=== PATIENT | male | born 1960 | race Caucasian/White ===

== ENCOUNTER 2016-11-27 05:34 | Inpatient (IN) | payer MEDICARE, OTHER ==
[2016-11-27] VITALS (8 sets, daily range): BP systolic 127–137; BP diastolic 67–87
[~2016-11-27] VITALS: Ht 175.3 cm; Wt 93.4 kg
--- NOTE | 2016-11-27 13:00 | NUR ---
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 ALERT AND ORIENTED TIMES 4. NO SIGNS OF ACUTE DISTRESS. COMPLAIN OF LEFT KNEE PAIN 10/26. NORCO 5/325 2 TABS PO GIVEN. TOLERATING WELL. ALL NEEDS ATTENDED TO. CALL LIGHT WITHIN REACH. CONTINUE TO MONITOR FOR FURTHER CHANGES.
[2016-11-27] MEDS ORDERED: GABA600T2 PO (16:57)
[2016-11-27] MEDS ORDERED: IBUP-1482 PO (16:57)
[2016-11-27] MEDS ORDERED: ATOR40TA PO (16:57)
[2016-11-27] MEDS ORDERED: BUPR200T PO (16:57)
[2016-11-27] MEDS ORDERED: VENL150T PO (16:57)
[2016-11-27] MEDS ORDERED: MIRT15TA7 PO (16:57)
[2016-11-27] MEDS ORDERED: CLON0.5T4 PO (16:57)
--- NOTE | 2016-11-27 17:49 | NUR ---
MS/animal treatment investigator reconciliation Home medications entered into computer. Dr Torre aware and stated that he would reconcile all medications on computer.
--- NOTE | 2016-11-27 17:57 | NUR ---
MS/RN DR BROWN PAGED DR BROWN PAIN MGMT UNABLE TO LEAVE MESSAGE. WILL RE ATTEMPT LATER.
--- NOTE | 2016-11-27 18:31 | NUR ---
MS/RN Pain medication orders Received call back from Dr Parikh, orders for pain medication given -norco 2 tablets every 3 hours for prn mild pain -oxycodone IR 10mg every 3 hours prn for moderate pain -dilaudid 1mg SQ every 3 hours prn for severe pain MD also requesting that gabapentin and clonazepam be continued, although dose of clonazepam changed to 0.25mg every eight hours prn for anxiety. Per Dr Parikh, no further anticoagulation to be ordered for patient, stated that ASA 325mg BID was adequate.
--- NOTE | 2016-11-27 18:38 | NUR ---
MS/RN CLOSING NOTE PATIENT IN BED IN STABLE CONDITION. ALERT AND ORIENTED TIMES 4. NO SINGS OF ACUTE DISTRESS. COMPLAIN OF PAIN TO LEFT KNEE, S/P TOTAL KNEE REPLACEMENT. NORCO 5/325 2 TABS GIVEN PO. TOLERATING WELL. ALL NEEDS ATTENDED TO. CALL LIGHT WITHIN REACH. WILL ENDORSE TO NEXT SHIFT FOR CONTINUITY OF CARE.
--- NOTE | 2016-11-27 19:30 | NUR ---
RN NOTE; RECEIVED PT IN BED W/ VISITOR AT THE BED SIDE. BREATHING EVENLY. NO SOB. NAD. SKIN WARM AND DRY. W/ MILD L KNEE PAIN . DRESSING IN PLACE CDI. F/C IN PLACE; DRAINING CLEAR YELLOW URINE . NEEDS ATTENDED . BED LOW LOCKED. CALL LIGHT WITHIN REACH. WILL CONT TO MONITOR .
--- NOTE | 2016-11-27 21:32 | NUR ---
dilaudid 1mg/1ml no t available . got an order from dr. kern to replace the order w/ 2mg/ml and give 0.5ml sq .
--- NOTE | 2016-11-27 21:34 | NUR ---
DILAUDID 1MG SQ GIVEN ORDERED FOR SEVERE L KNEE PAIN. WILL CONT TO MONITOR,
--- NOTE | 2016-11-27 22:57 | NUR ---
PT IS REQUESTING TO HOLD ON TO HIS REMERON FOR NOW. HE WILL LET ME KNOW WHEN HE WANTS TO TAKE IT BEFORE SLEEP. PT IS CURRENTLY USING THE CPM MACHINE W. NO COMPLICATIONS. PAIN TOLERATED WELL. ALSO PT IS REQUESTING TO HOLD ON TO HIS IVF HYDRATION FOR NOW AND REFUSED TO BE CONNECTED WHILE SLEEPING. WILL CONT TO MONITOR.
--- NOTE | 2016-11-28 02:09 | NUR ---
noted w/ an order from DR. Sanderson for RBC fro active bleeding?! last H/H: 16.2 &49. pt w/ no s/s of active bleeding . no SOB. paged Dr. sanderson and explained pt's condition and new order. w/ an order to D/c the order. Pt will have blood draw in AM for H/H. will cont to monitor.
--- NOTE | 2016-11-28 03:54 | NUR ---
oxy ir 10mg given as ordered for c/o l knee pain, will cont to monitor
--- NOTE | 2016-11-28 06:26 | NUR ---
RN NOTE; PT IN BED AWAKE AND ALERT. BREATHING EVENLY. NO SOB. NAD .SKIN WARM AND DRY. S/P L KNEE ARTHROPLASTY W/ NO COMPLICATIONS DURING THE NIGHT. L KNEE DRESSING CDI. ON ON AND OFF IVF HYDRATION. PAIN UNDER CONTROL BY USE OF PAIN MEDICATIONS. F/C IN PLACE DRAINING CLEAR YELLOW URINE. NEEDS ATTENDED. ASSISTED W/ ADLS . CALL LIGHT WITHIN REACH .WILL CONT TO MONITOR AND WILL ENDORSE TO AM SHIFT FOR NAVEED.
[2016-11-28 07:03] LABS: HEMOGLOBIN 13.7 g/dL (13.5-17.5)
--- NOTE | 2016-11-28 07:47 | NUR ---
MS/RN OPENING NOTE PATIENT RECEIVED IN BED IN STABLE CONDITION. ALERT AND ORIENTED TIMES 4. NO SINGS OF ACUTE DISTRESS. COMPLAIN OF LEFT KNEE S/P TOTAL KNEE REPLACEMENT PAIN RATED 8/10. DILAUDID 2MG/0.5ML SQ GIVEN. TOLERATING WELL. ALL NEEDS ATTENDED TO. CALL LIGHT WITHIN REACH. WILL CONTINUE TO MONITOR TO ENSURE SAFETY.
[2016-11-28 08:00] VITALS: BP 121/70
--- NOTE | 2016-11-28 09:30 | NUR ---
MS/RN D/C F/C S/P F/C REMOVAL TOLERATED WELL. NO S/S OF BLEEDING. NO S/S OF INFECTION NOTED. NO COMPLAIN OF PAIN OR DISCOMFORT. ALL NEEDS ATTENDED AT THIS TIME. CALL LIGHT WITHIN REACH. WILL CONTINUE TO MONITOR TO ENSURE SAFETY.
--- NOTE | 2016-11-28 10:00 | NUR ---
MS/RN S/B Dr Yo Seen by Dr Yo - labs ordered for tomorrow. Upon discharge, patient requesting to go home with home health rather than to an acute rehab unit.
--- NOTE | 2016-11-28 11:30 | NUR ---
MS/RN S/B Ortho Seen by Gely BARKER - first dressing change tomorrow by . Patient complaining of increased pain and swelling to left calf area. Venous duplex ordered.
--- NOTE | 2016-11-28 14:58 | NUR ---
MS/RN Duplex imaging Left calf venous duplex in progress at bedside.
--- NOTE | 2016-11-28 15:05 | NUR ---
MS/RN Physical therapy Seen by PT - patient ambulating 300ft using FWW, able to climb 12 stairs X2.
--- NOTE | 2016-11-28 15:30 | NUR ---
MS/RN Duplex result Venous duplex negative for DVT.
[2016-11-28 16:00] VITALS: BP 118/71
--- NOTE | 2016-11-28 16:37 | NUR ---
MS/RN IV PULLED OUT LEFT HAND IV 22 GZ PULLED OUT. NO S/S OF BLEEDING, NO S/S OF SWELLING. IV CATHETER INTACT. DR [place] AWARE.
--- NOTE | 2016-11-28 17:39 | NUR ---
MS/RN CLOSING NOTE PATIENT IN BED, AWAKE IN STABLE CONDITION. ALERT AND ORIENTED TIMES 4. NO SIGNS OF ACUTE DISTRESS. NO COMPLAIN OF PAIN OR DISCOMFORT AT THIS TIME. USING CPM MACHINE SECONDARY TO S/P LEFT TKA AT THIS TIME. TOLERATING WELL. ALL NEEDS ATTENDED TO. CALL LIGHT WITHIN REACH. WILL CONTINUE TO MONITOR TO ENSURE SAFETY.
--- NOTE | 2016-11-28 18:26 | NUR ---
MS/RN Pain Complaining of 7/10 pain to left knee after ambulating in hallways. Dilaudid 1mg administered as ordered, will monitor effectiveness.
--- NOTE | 2016-11-28 19:30 | NUR ---
rn note; RECEIVED PT IN BED AWAKE AND ALERT. BREATHING EVENLY. NO SOB. NAD. DRESSING ON L KNEE CDI . W/ C/O MILD TO MODERATE PAIN. REQUESTING OXY IR .EXPLAINED TO THE PT THAT IT WILL BE GIVEN IT'S DUE PT UNDERSTANDS AND AGREED. NEEDS ATTENDED . CALL LIGHT WITHIN REACH,. WILL CONT TO MONITOR.
[2016-11-28 20:00] VITALS: BP 138/83
--- NOTE | 2016-11-28 20:42 | NUR ---
OXY IR GIVEN ORDERED PER PT'S REQUEST FOR C/O L KNEE PAIN. WILL CONT TO MONITOR
--- NOTE | 2016-11-29 00:26 | NUR ---
dilaudid 1mg sq given for c/o severe l knee pain. assisted pt w/ repositioning having him comfortable in bed . will cont to monitor.
--- NOTE | 2016-11-29 06:15 | NUR ---
dilaudid 1mg sq given for c/o severe l knee pain. will cont to monitor.
--- NOTE | 2016-11-29 06:43 | NUR ---
RN NOTE; PT IN BED AWAKE AND ALERT. BREATHING EVENLY. NO ACUTE EVENT DURING THE NIGHT. PAIN TOLERATED WELL BY USE OF PAIN MEDICATIONS ORDERED .NEEDS ATTENDED .ASSISTED W. ADLS. CALL LIGHT WITHIN REACH .WILL CONT TO MONITOR AND WILL ENDORSE TO AM SHIFT FOR NAVEED.
[2016-11-29 07:44] LABS: BASOPHILS % (AUTO) 0.1 % (0.0-2.0); EOSINOPHILS # (AUTO) 0.4 /CMM (0.0-0.7); HEMATOCRIT 39 % (39-51); HEMOGLOBIN 13.2 g/dL (13.5-17.5); LYMPHOCYTES # (AUTO) 1.5 /CMM (0.8-4.8); LYMPHOCYTES % (AUTO) 10.8 % (20.0-44.0); MEAN CORPUSCULAR HEMOGLOBIN 32 PG (26.0-33.0); MEAN CORPUSCULAR HGB CONC 34 g/dl (31.0-36.0); MEAN CORPUSCULAR VOLUME 94 fL (80-96); MONOCYTES # (AUTO) 2.1 /CMM (0.1-1.30); MONOCYTES % (AUTO) 15.1 % (2.0-12.0); NEUTROPHILS # (AUTO) 9.9 /CMM (1.8-8.9); PLATELET COUNT (AUTO) 182 /CMM (150-450); RDW COEFFICIENT OF VARIATION 13.8 (11.5-15.0)
--- NOTE | 2016-11-29 07:56 | NUR ---
MS RN NOTES PATIENT RESTING IN BED. NO SOB, NO C/O PAIN, TALKATIVE, NO ACUTE DISTRESS NOTED. BED IN LOW LOCKED POSITION. CALL LIGHT WITHIN REACH. WILL CONTINUE TO OBSERVE CLOSELY FOR ANY CHANGES.
[2016-11-29 08:00] VITALS: BP 129/67
[2016-11-29 08:23] LABS: CALCIUM, SERUM 8.3 mg/dL (8.5-10.1); CREATININE 1.2 mg/dL (0.6-1.3); POTASSIUM 4.3 mmol/L (3.5-5.1)
[2016-11-29 10:24] LABS: EOSINOPHILS % (MANUAL) 3 % (0-4); LYMPHOCYTES % (MANUAL) 9 % (16-48); MONOCYTES % (MANUAL) 15 % (0-11.0); NEUTROPHILS % (MANUAL) 73 (42-76)
[2016-11-29 16:00] VITALS: BP 135/84
--- NOTE | 2016-11-29 18:41 | NUR ---
MS RN NOTES PATIENT RESTING IN BED, AMBULATES WITH THE WALKER. HAS LEFT KNEE BRACE ON. HAD C/O PAIN TO LEFT KNEE. PAIN WAS MANAGED BY ADMINISTERING PRN PAIN MEDICINES ORDERED. HOUSING COORDINATOR DISCUSSED WITH THE PT, PLANNED TO BE DISCHARGED HOME WITH HOME HEALTH TOMORROW. PATIENT VERBALIZED UNDERSTANDING OF ALL THE INSTRUCTIONS. NO IV LINE. MD AWARE. USES CPM MACHINE AT 60 DE[address]REE. BED IN LOW LOCKED POSITION. CALL LIGHT WITHIN REACH. WILL ENDORSE TO OYSTER CULLER.
--- NOTE | 2016-11-29 19:30 | NUR ---
rn note; RECEIVED PT IN BED AWAKE AND ALERT. BREATHING EVENLY. NO SOB. NAD. DRESSING ON L KNEE CDI . REQUESTING OXY IR PRIOR USING THE CPM MACHINE. TO BE GIVEN . NEEDS ATTENDED . CALL LIGHT WITHIN REACH,. WILL CONT TO MONITOR.
[2016-11-29 20:00] VITALS: BP 143/85
--- NOTE | 2016-11-29 20:12 | NUR ---
OXY IR GIVEN PER PT'S REQUEST FOR C/O PAIN ON L KNEE. WILL CONT TO MONITOR,
--- NOTE | 2016-11-30 06:31 | NUR ---
RN NOTE; PT IN BED SLEEPING. BREATHING EVENLY. NO ACUTE EVENT DURING THE NIGHT. PAIN UNDER GOOD CONTROL.NEEDS ATTENDED .ASSISTED W. ADLS. CALL LIGHT WITHIN REACH .WILL CONT TO MONITOR AND WILL ENDORSE TO AM SHIFT FOR NAVEED.
--- NOTE | 2016-11-30 07:20 | NUR ---
RN OPENING NOTES RECEIVED PATIENT IN BED AWAKE AND ALERT X4. NO ACUTE DISTRESS, NO SOB NOTED. DENIES PAIN AT THIS TIME. NO IV SITE. PATIENT AMBULATES WITH WALKER. KEPT PATIENT SAFE AND COMFORTABLE. BED IN LOW POSITION, LOCKED, SIDERAILS UPX2, CALL LIGHT IN REACH. WILL CONTINUE TO MONITOR ACCORDINGLY.
[2016-11-30 07:50] LABS: BASOPHILS % (AUTO) 0.2 % (0.0-2.0); EOSINOPHILS # (AUTO) 0.5 /CMM (0.0-0.7); EOSINOPHILS % (AUTO) 4.3 % (0.0-6.0); HEMATOCRIT 37 % (39-51); HEMOGLOBIN 12.4 g/dL (13.5-17.5); LYMPHOCYTES # (AUTO) 1.4 /CMM (0.8-4.8); LYMPHOCYTES % (AUTO) 12.2 % (20.0-44.0); MEAN CORPUSCULAR HEMOGLOBIN 32 PG (26.0-33.0); MEAN CORPUSCULAR HGB CONC 34 g/dl (31.0-36.0); MEAN CORPUSCULAR VOLUME 95 fL (80-96); MONOCYTES # (AUTO) 1.7 /CMM (0.1-1.30); MONOCYTES % (AUTO) 14.8 % (2.0-12.0); NEUTROPHILS # (AUTO) 8.1 /CMM (1.8-8.9); NEUTROPHILS % (AUTO) 68.5 % (43.0-81.0); PLATELET COUNT (AUTO) 185 /CMM (150-450); RDW COEFFICIENT OF VARIATION 13.8 (11.5-15.0); RED BLOOD CELL COUNT(AUTO) 3.83 MIL/uL (4.5-6.0); WHITE BLOOD COUNT (AUTO) 11.8 K/uL (4.3-11.0)
[2016-11-30 08:00] VITALS: BP 143/70
[2016-11-30 08:02] LABS: CALCIUM, SERUM 8.4 mg/dL (8.5-10.1); CREATININE 1.2 mg/dL (0.6-1.3); POTASSIUM 4.2 mmol/L (3.5-5.1)
--- NOTE | 2016-11-30 13:00 | NUR ---
RN NOTES NEURONTIN GIVEN, SCANNER BARCODE NOT WORKING.
--- NOTE | 2016-11-30 13:01 | NUR ---
RN NOTES DISREGARD PREVIOUS NOTES, WRONG TIME DOCUMENTED.
--- NOTE | 2016-11-30 13:05 | NUR ---
RN NOTES PATIENT REFUSED NEURONTIN. WILL CONTINUE TO MONITOR ACCORDINGLY.
[2016-11-30 16:00] VITALS: BP 138/71
--- NOTE | 2016-11-30 18:00 | NUR ---
RN NOTES NEURONTIN GIVEN, SCANNER BARCODE NOT WORKING.
--- NOTE | 2016-11-30 19:00 | NUR ---
MS/POLYSOMNOGRAPHIC TECHNOLOGIST; RECEIVED PT 'S REPORTS FROM THE DAY SHIFT RN . PT IN THE ROOM WALKING WITH WALKER AT THIS RIME. 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 HL REMOVED BY THE DAY SHIFT RN.
--- NOTE | 2016-11-30 19:19 | NUR ---
RN CLOSING NOTES PATIENT IN BED RESTING. NO ACUTE DISTRESS, NO SOB NOTED. ALL NEEDS ATTENDED AND PROVIDED. MAINTAINED A SAFE ENVIRONMENT. PATIENT IS FOR DISCHARGE, INSTRUCTIONS/EXITCARE DONE, DISCHARGE PAPERWORK GIVEN TO PATIENT. PATIENT JUST WAITING FOR GIRLFRIEND TO PICK HIM UP. BED IN LOW POSITION, LOCKED, SIDERAILS UPX2, CALL LIGHT IN REACH. ENDORSED TO SHIPPING CHECKER RN FOR NAVEED.
--- NOTE | 2016-11-30 20:00 | NUR ---
MS/TRIAL COURT JUDGE; PT DC AT THIS TIME. PT WAS WHEELED DOWN TO THE LOBBY ACCOMPANIED BY THE PROGRAM DIR AND PT'S GIRLFRIEND.
== END 2016-11-30 20:00 | disposition home or self-care (01) | DRG 470 ==
LOC: DS 05:34 → MED 11:58
PROVIDERS: ADMIT Specialist; ATTEND Internal Medicine
PROC: 0SRD0J9 Replacement of Left Knee Joint with Synthetic Substitute, Cemented, Open Approach (ICD-10-PCS; principal; 2016-11-27 10:30)
DX: M17.12 Unilateral primary osteoarthritis, left knee (principal); F32.9 Major depressive disorder, single episode, unspecified; E78.5 Hyperlipidemia, unspecified; F41.9 Anxiety disorder, unspecified; Z72.0 Tobacco use; K21.9 Gastro-esophageal reflux disease without esophagitis; E66.9 Obesity, unspecified; Z68.30 Body mass index [BMI] 30.0-30.9, adult
CPT/HCPCS: 36415; 80048-TC; 85025-TC; 85027-TC; 86850-TC; 86921-TC; 87081-TC; 88305-TC; 88311-TC; 93971-TC; 97110-TC; 97116-TC; 97530-TC; 97760-TC; A4217; A6253; A6402; C1713; J0690; J1170; J1650; J1885; J2250; J2704; J3010; J3490; J7060; Z7610